=== PATIENT | male | born 1970 | race Two or more races ===

== ENCOUNTER 2018-02-16 08:34 | Emergency (ER) | payer OTHER ==
[~2018-02-16] VITALS: Ht 182.9 cm; Wt 100.0 kg
[2018-02-16 10:43] LABS: BG BASE EXCESS -0.3 mmol/L (-2.0-2.0); BG CARBOXYHEMOGLOBIN 0.9 % (0.5-1.5); BG FRACTION INSPIRED OXYGEN 21; BG HCO3 ACT 23.5 mmol/L (22.0-26.0); BG OXYHEMOGLOBIN 97.1 % (94.0-97.0); BG PH 7.432 (7.350-7.450); BG PO2 100.7 mmHg (75.0-100.0); BG SAMPLE SITE LEFT RADIAL; BG TOTAL HEMOGLOBIN 15.5 g/dL (12.0-18.0); BG VENT MODE ROOM AIR
[2018-02-16 11:28] VITALS: BP 114/69
[2018-02-16] MEDS ORDERED: LIDOCAINE HCL/PF 1% 2ML VIAL ONE (14:38)
== END 2018-02-16 11:45 | disposition home or self-care (01) ==
LOC: ER 09:36
DX: R51 Headache (principal); R53.83 Other fatigue; R11.0 Nausea; R20.2 Paresthesia of skin; Z77.098 Contact with and (suspected) exposure to other hazardous, chiefly nonmedicinal, chemicals
CPT/HCPCS: 36600; 82375; 82805; 99284; J3490; 99283